=== PATIENT | male | born 2000 | race Two or more races ===

== ENCOUNTER 2022-04-16 16:37 | Emergency (ER) | payer OTHER ==
[~2022-04-16] VITALS: Ht 172.7 cm; Wt 95.0 kg
[2022-04-16 19:57] VITALS: BP 136/84
== END 2022-04-16 20:12 | disposition home or self-care (01) ==
LOC: EDBD 16:37 → ER 16:37
DX: M79.644 Pain in right finger(s) (principal); M54.59 Other low back pain; V43.62XA Car passenger injured in collision with other type car in traffic accident, initial encounter; Y93.89 Activity, other specified; Y92.410 Unspecified street and highway as the place of occurrence of the external cause; Y99.8 Other external cause status
CPT/HCPCS: 73130